=== PATIENT | female | born 1985 | race Caucasian/White ===

== ENCOUNTER 2017-09-15 19:03 | Emergency (ER) | payer OTHER ==
[~2017-09-15] VITALS: Ht 165.1 cm; Wt 59.0 kg
[~2017-09-15 19:03] MED LIST: PREDNISONE 10 M10 MG PO; VALACYCLOVIR1000 MG PO
[2017-09-15 19:46] LABS: ABSOLUTE BASOPHILS 0.1 thou/uL (0.0-0.2); ABSOLUTE EOSINOPHILS 0.1 thou/uL (0.0-0.7); ABSOLUTE LYMPHOCYTES 3.1 thou/uL (0.8-5.3); ABSOLUTE MONOCYTES 0.7 thou/uL (0.0-1.2); ABSOLUTE NEUTROPHILS 4.1 thou/uL (1.6-8.1); BASOPHILS 1.2 %; EOSINOPHILS 1.1 %; HEMOGLOBIN 12.9 gm/dL (12.0-15.0); LYMPHOCYTES 38.4 %; MCH 30.4 pg (26.0-34.0); MCHC 33.8 g/dL (28.0-37.0); MCV 89.8 fL (80.0-100.0); MONOCYTES 8.7 %; MPV 7.7 fl. (7.2-11.1); NUCLEATED RBCS 0 /100WBC; PLATELET COUNT* 268 thou/uL (150-400); POLYS 50.6 %; RBC 4.24 mil/uL (4.20-5.00); RDW-CV 13.3 % (10.5-14.5); WBC 8.1 thou/uL (4.0-11.0)
[2017-09-15 19:54] LABS: CALCIUM 9.7 mg/dL (8.5-10.1); CREATININE 0.7 mg/dL (0.6-1.3); POTASSIUM 3.9 mmol/L (3.5-5.1)
[2017-09-15 19:58] LABS: ALBUMIN 4.4 g/dL (3.4-5.0); TOTAL BILIRUBIN 0.5 mg/dL (<0.1-1.0); TOTAL PROTEIN 8.1 g/dL (6.4-8.2)
[2017-09-15 21:44] VITALS: BP 107/66
--- NOTE | 2017-09-18 11:28 | EKG ---
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: : 1985 Requested By: Lian Cannon Order Number: [id number] Suha MD: Cory Conley Measurements Intervals [place] Rate: 96 P: 72 ND: 171 QRS: 87 QRSD: 96 T: 51 QT: 357 QTc: 452 Interpretive Statements Sinus rhythm RSR' in V1 or V2, probably normal variant Minimal ST depression, inferior leads Baseline wander in lead(s) V4 No previous ECG available for comparison Electronically Signed On 09-18-2017 11:28:38 CDT by Cory Conley [email or web address] <ELECTRONICALLY SIGNED> By: Cory Conley MD, [facility] 09/18/17 1128 13 13 Cory Conley MD, FAC /EPI
== END 2017-09-15 21:45 | disposition home or self-care (01) ==
LOC: M.ERS 19:03
PROVIDERS: Emergency Medicine
DX: R10.13 Epigastric pain (principal); R07.9 Chest pain, unspecified; R11.0 Nausea